=== PATIENT | female | born 1980 | race Caucasian/White ===

== ENCOUNTER 2019-12-24 15:55 | Emergency (ER) | payer OTHER ==
[~2019-12-24] VITALS: Ht 154.9 cm; Wt 83.0 kg
[~2019-12-24 15:55] MED LIST: ASPIRIN EC325 MG PO; BACTRIM DS TAB1 EACH PO; BENADRYL25 MG PO; CEPHALEXIN500 MG PO; K-TAB10 MEQ PO; NORCO 5-325 TA1 EACH PO; XANAX0.5 MG PO
[2019-12-24] MEDS ORDERED: ONDANSETRON ODT8 MG PO (19:31)
[2019-12-24] MEDS ORDERED: NORCO 5-325 TA1 EACH PO (19:31)
== END 2019-12-24 19:54 | disposition home or self-care (01) ==
LOC: ED 15:55
DX: S70.02XA Contusion of left hip, initial encounter (principal); F17.200 Nicotine dependence, unspecified, uncomplicated; Z88.8 Allergy status to other drugs, medicaments and biological substances; Z79.899 Other long term (current) drug therapy; W18.30XA Fall on same level, unspecified, initial encounter
CPT/HCPCS: 72192; 73502; 96374; 96375; 99284-25; A9270; J1170; J2405; J2550

== ENCOUNTER 2020-06-11 10:30 | Emergency (ER) | payer OTHER ==
[~2020-06-11] VITALS: Ht 152.4 cm; Wt 87.9 kg
[~2020-06-11 10:30] MED LIST changes: +ONDANSETRON ODT8 MG PO
== END 2020-06-11 14:00 | disposition home or self-care (01) ==
LOC: ED 10:30
DX: R10.9 Unspecified abdominal pain (principal); F17.200 Nicotine dependence, unspecified, uncomplicated; Z88.8 Allergy status to other drugs, medicaments and biological substances
CPT/HCPCS: 76705; 80053; 81001; 83690; 84703; 85025; 96374; 96375; 99284-25; J1885; J2405

== ENCOUNTER 2020-11-14 09:50 | Emergency (ER) | payer OTHER ==
[~2020-11-14] VITALS: Ht 152.4 cm; Wt 87.9 kg
[2020-11-14] MEDS ORDERED: ASPIRIN81 MG PO (10:11)
[2020-11-14] MEDS ORDERED: LISINOPRIL10 MG PO (12:10)
--- NOTE | 2020-11-14 18:08 | EKG ---
[facility] [address] [facility] [place] [address] Signed Normal sinus rhythm RSR' or QR pattern in V1 suggests right ventricular conduction delay Cannot rule out Anterior infarct , age undetermined Abnormal ECG No previous ECGs available Confirmed by AYSE DOCKERY MD ([id number]) on 11/14/2020 6:08:31 PM Electronically Signed By: AYSE DOCKERY MD 11/14/20 1808 PATIENT NAME: BALWINDER BAEZA BÁRBARA Electrocardiogram DATE OF : 78 PHYSICIAN: AYSE DOCKERY MD REPORT #: [id number] REPORT IS CONFIDENTIAL AND NOT TO BE RELEASED WITHOUT AUTHORIZATION
== END 2020-11-14 13:48 | disposition home or self-care (01) ==
LOC: ED 09:50
DX: I10 Essential (primary) hypertension (principal); F17.200 Nicotine dependence, unspecified, uncomplicated; Z88.8 Allergy status to other drugs, medicaments and biological substances; Z88.5 Allergy status to narcotic agent; Z79.82 Long term (current) use of aspirin
CPT/HCPCS: 71045; 80053; 81001; 83735; 83880; 84443; 84484; 85025; 93005; 93010; 99284-25

== ENCOUNTER 2022-07-19 07:30 | Day surgery (SDC) | payer OTHER ==
[~2022-07-19] VITALS: Ht 154.9 cm; Wt 78.2 kg
[~2022-07-19 07:30] MED LIST changes: +ASPIRIN81 MG PO; +LISINOPRIL10 MG PO; +OMEPRAZOLE20 MG PO; +WELLBUTRIN SR150 MG PO
--- NOTE | 2022-07-19 09:38 | NUR ---
07/19/22 0953 Isabel Garrison 0960 PATIENT ARRIVES TO PACU AWAKE OFF/ON, BUT VERY DROWSY. SLEEPING WHEN NOT STIMULATED. FOLLOWS COMMANDS. RESP EVEN AND UNLABORED, NC AT 3 LITERS, TURNED OFF.
--- NOTE | 2022-07-19 10:43 | NUR ---
PATIENT BACK TO ROOM FROM PACU ON RA. RECEIVED REPORT FROM TAWANNA MOODY. PATIENT IS ASLEEP LAYING ON HER LEFT SIDE. PATIENT AWAKES EASILY. PATIENT AT THIS POINT DOES NOT APPEAR TO HAVE ANY NAUSEA. CALL LIGHT WITHIN REACH FAMILY AT BEDSIDE.
--- NOTE | 2022-07-19 11:40 | NUR ---
LE 1115 PATIENT AWAKE. PATIENT ABLE TO STAND AND TOLERATED IT WELL. PATIENT WANTING TO GO HOME. PATIENT DISCHARGE GIVEN AND UNDERSTOOD. NO QUESTIONS AT THIS TIME. PATIENT DRESSED SELF AND WAS WHEELED OUT OF FACILITY TO PRIVATE AUTO. NO FUTHER NEEDS.
--- NOTE | 2022-07-20 08:35 | OR ---
[facility] [address] [place], [place] [address] Signed DATE OF OPERATION: 07/19/2022 SURGEON: Xena Sood MD PREOPERATIVE DIAGNOSES: 1. Gastroesophageal reflux disease. 2. History of peptic ulcer disease as young adult. 3. Intentional weight loss of 23 pounds on diet plan over several months. POSTOPERATIVE DIAGNOSES: 1. Moderate sized hiatal hernia (38-34 cm). 2. Mild diffuse gastritis. 3. GE junction at 34 cm. PROCEDURE: EGD with CLOtest and biopsies of the antrum and GE junction. ESTIMATED BLOOD LOSS: None. INDICATIONS: Marlin is a 41-year-old female asked to see me for upper endoscopy. She is having trouble with acid reflux. She can remember clear back to when she was a teenager. More recently, she was placed on omeprazole with excellent results. She realizes that without the omeprazole, her symptoms returned. She has been decreasing her coffee down from two pots per day as well as smoking from two packs per day to less than one pack per day. She talked about a possible bleeding ulcer when she was a young adult. She never underwent upper endoscopy. That was a clinical diagnosis. She was asked by her primary care provider come and have an upper endoscopy. Her comes with her today. In the office, I had given them a pamphlet on upper endoscopy. We had reviewed that in detail. There is risk including, but not limited to gas bloating, crampy abdominal pain, bleeding, perforation requiring surgery, and missed diagnosis. We also reviewed the need for IV conscious sedation. She had expressed understanding and wished to proceed. PROCEDURE NOTE: Marlin was taken into our endoscopy suite and placed in the supine semi-recumbent position. The posterior oropharynx was anesthetized with Hurricaine spray. A bite block was utilized for the case. She was given a total of 6 mg of Versed and 100 mcg of fentanyl to cover the case. She has a fairly reactive airway and posterior oropharynx. Electronically Signed By: XENA SOOD MD 07/20/22 0835 PATIENT NAME: MARLIN BAEZA OPERATIVE REPORT DATE OF : 78 REPORT #: [id number] PHYSICIAN: XENA SOOD MD PCP: KAYLEIGH MARRERO PA-C REPORT IS CONFIDENTIAL AND NOT TO BE RELEASED WITHOUT AUTHORIZATION [facility] [address] [place], [place] [address] Signed She coughed quite a bit of phlegm. That made it more difficult as we had to suction her frequently. In that regard, she was generally awake and coughing or she was asleep and her sats were dropping below 90. She could probably benefit from monitored anesthesia care with propofol infusion in the future. We passed the scope into the duodenum under direct visualization of the camera. The duodenum and pyloric channel were unremarkable. Her stomach showed some mild erythematous changes. We went ahead and took a biopsy from the antrum for CLOtest as well as pathologic review. We saw no evidence of any ulcers. Upon retroflexion of the scope, we could easily see her moderate-sized hiatal hernia. It measured from 38 back to 34 cm. She has mild disruption to her Z-line. There was no Cortez's mucosa. We went ahead and took a biopsy along the edge of the Z-line. There was no distal esophagitis. There were no esophageal gastric varices. There were no strictures. Her middle and upper esophagus were unremarkable. After this, the gas was suctioned out and the gastroscope removed. Marlin tolerated the procedure quite well. RECOMMENDATIONS: I will see Marlin back in my office in 7 to 14 days to review her results. Xena Sood MD ALB/MODL /[id number] cc: MD Kayleigh Gupta PA Copies: XENA SOOD MD ~ Electronically Signed By: XENA SOOD MD 07/20/22 0835 PATIENT NAME: MARLIN BAEZA OPERATIVE REPORT DATE OF : 78 REPORT #: [id number] PHYSICIAN: XENA SOOD MD PCP: KAYLEIGH MARRERO PA-C REPORT IS CONFIDENTIAL AND NOT TO BE RELEASED WITHOUT AUTHORIZATION
--- NOTE | 2022-07-24 18:04 | PATH ---
[facility] [address] [place], [place] [address] Signed SPECIMEN(S): A ANTRUM BIOPSY SPECIMEN(S): B GE JUNCTION SPECIMEN SOURCE: A. ANTRUM BIOPSY B. GE JUNCTION CLINICAL HISTORY: Pre: GERD. Post: Gastritis and hiatal hernia. FINAL PATHOLOGIC DIAGNOSIS: A. Antrum, biopsy: - Focal intestinal metaplasia. - There is no evidence of dysplasia or neoplasia. B. GE junction, biopsy: - Acute and chronic carditis. - Reflux esophagitis. - There is no evidence of Cortez's esophagus. COMMENT: Regarding specimen A, the sections through the gastric biopsy show multiple fragments of gastric mucosa with focal intestinal metaplasia. There is no evidence of dysplasia or neoplasia associated with the metaplasia. There is no evidence of acute or chronic inflammation. There is no evidence of H. pylori. This is confirmed with a negative Helicobacter pylori immunohistochemical stain. Intestinal metaplasia is usually seen in response to previous injury. However, there is no evidence of a gastritis or gastropathy at this time. Control slide stained appropriately positive. Regarding specimen B, the sections through the biopsy show a glandular mucosa that consists of acute and chronically inflamed cardiac mucosa. Reactive and inflamed squamous epithelium with occasional eosinophils is also present. No H. pylori are seen and this is confirmed by the HP immunostain. There is no evidence of intestinal metaplasia and this is confirmed by the Alcian blue/PAS stain. Control slides stained appropriately positive. LESLYK:ezra:christineh:C2NR MICROSCOPIC EXAMINATION: Histologic sections of all submitted blocks are examined by light microscopy. PATIENT NAME: BALWINDER BAEZA PATHOLOGY DATE OF : 78 REPORT #: [id number] PHYSICIAN: JOANNA SIDHU PCP: KAYLEIGH MARRERO PA-C REPORT IS CONFIDENTIAL AND NOT TO BE RELEASED WITHOUT AUTHORIZATION [facility] [address] [place], [place] [address] Signed These findings, together with the gross examination, support the pathologic diagnosis. GROSS DESCRIPTION: A. The specimen, labeled and designated "Gina, antrum biopsy," is received in formalin and consists of one garcia soft tissue fragment, 0.3 cm. Entirely submitted in (A1). B. The specimen, labeled and designated "Gina, GE junction biopsy," is received in formalin and consists of one garcia soft tissue fragment, 0.2 cm. Entirely submitted in (B1). VB (under the direct supervision of a pathologist) The Gross Description was prepared using a voice recognition system. The report was reviewed for accuracy; however, sound-alike word errors, addition and/or deletions may occur. If there is any question about this report, please contact Client Services. ADDITIONAL NOTES: Immunohistochemical and/or in situ hybridization studies were performed on this case with the appropriate positive controls that react as expected. This test was developed and its performance characteristics determined by [facility]. It has not been cleared or approved by the U.S. Food and Drug Administration. The FDA has determined that such clearance or approval is not necessary. This test is used for clinical purposes. It should not be regarded as investigational or for research. [facility] is certified under the Clinical Laboratory Improvement Amendments of 1988 (CLIA) as qualified to perform high complexity clinical laboratory testing. This assay has not been validated for specimens that have been decalcified. PERFORMING LABORATORY: The technical component was performed by [facility], [address] [place] [id number] (CLIA# [id number]). The professional interpretation was performed by [facility], [facility], [address] [place] [address] (CLIA#: [id number]). Diagnostician: Edison Holley MD Pathologist Electronically Signed 07/24/2022 PATIENT NAME: BALWINDER BAEZA PATHOLOGY DATE OF : 78 REPORT #: [id number] PHYSICIAN: JOANNA PATHOLOGY PCP: KAYLEIGH MARRERO PA-C REPORT IS CONFIDENTIAL AND NOT TO BE RELEASED WITHOUT AUTHORIZATION
== END 2022-07-19 11:30 | disposition home or self-care (01) ==
LOC: DS 07:30 → OPS 07:30 → DS 09:45 → OPS 09:45
PROVIDERS: ATTEND Colon & Rectal Surgery
PROC: 0DB68ZX Excision of Stomach, Via Natural or Artificial Opening Endoscopic, Diagnostic (ICD-10-PCS; 2022-07-19)
PROC: 0DB48ZX Excision of Esophagogastric Junction, Via Natural or Artificial Opening Endoscopic, Diagnostic (ICD-10-PCS; principal; 2022-07-19 09:00)
DX: K29.70 Gastritis, unspecified, without bleeding (principal); K21.00 Gastro-esophageal reflux disease with esophagitis, without bleeding; K44.9 Diaphragmatic hernia without obstruction or gangrene; F17.210 Nicotine dependence, cigarettes, uncomplicated; Z88.8 Allergy status to other drugs, medicaments and biological substances; Z91.041 Radiographic dye allergy status; E66.9 Obesity, unspecified; F41.9 Anxiety disorder, unspecified; I10 Essential (primary) hypertension; Z68.32 Body mass index [BMI] 32.0-32.9, adult; I51.89 Other ill-defined heart diseases
CPT/HCPCS: 36415; 84703; 87077; 99153; G0500; J2250; J2405; J3010; J7121

== ENCOUNTER 2022-08-13 08:46 | Emergency (ER) | payer OTHER ==
[~2022-08-13] VITALS: Ht 160 cm; Wt 82.9 kg
[2022-08-13] MEDS ORDERED: LISINOPRIL30 MG PO (09:06)
[2022-08-13] MEDS ORDERED: CYCLOBENZAPRINE10 MG PO (09:06)
[2022-08-13] MEDS ORDERED: BUPROPION HCL150 M2 PO (09:06)
[2022-08-13] MEDS ORDERED: TRAMADOL HCL50 MG PO (10:25)
== END 2022-08-13 11:28 | disposition home or self-care (01) ==
LOC: ED 08:46
DX: T14.8XXA Other injury of unspecified body region, initial encounter (principal); M25.551 Pain in right hip; M54.2 Cervicalgia; W18.30XA Fall on same level, unspecified, initial encounter
CPT/HCPCS: 36415; 70450; 71250; 72125; 74176; 80053; 84702; 85025; 86850; 86900; 86901; 96374; 99284-25; G0480; J1170